=== PATIENT | female | born 1960 | race Caucasian/White ===

== ENCOUNTER 2024-04-20 00:29 | Emergency (ER) | payer BC, SELFPAY ==
[2024-04-20] VITALS (7 sets, daily range): BP systolic 117–135; BP diastolic 57–72; PULSE 67–85; RESP 16; TEMP 36; O2SAT 93–96; BMI 32.0
--- NOTE | 2024-04-20 00:43 | ED_ITS ---
HPI - General Adult General Chief complaint: Abdominal Pain Stated complaint: upper abdominal pain Time Seen by Provider: 04/20/24 00:40 History of Present Illness HPI narrative: pain in stomach , upper center. tried antacid, not helping it . Started after [employer] hamburger. Feels like a build up of pressure. Pain rated 8/10. Started around 1800. Last oral intake was 1730, full meal. 64-year-old woman presenting to the emergency department with complain of epigastric area pressure in particular. Rather intense pain. Arrives here around midnight about 6 hours into pain following a [employer] cheeseburger and fries as her meal. Has not had any fever. No diarrhea. Not really constipated. Does have heartburn at times but not like this. She did try Tums I believe without relief. Pain seemed to go through to her back as well. No symptoms down her legs. Not really short of breath. Related Data Home Medications ?Medication ?Instructions ?Recorded ?Confirmed lisinopril 10 mg tablet 10 mg PO DAILY 04/20/24 04/24/24 Allergies Allergy/AdvReac Type Severity Reaction Status Date / Time amlodipine Allergy Intermediate Uncoded 04/24/24 12:53 Review of Systems Status of ROS: Reports: 6 or more systems reviewed and unremarkable except as noted in History and below [facility] Social History service: No Exam Narrative: Exam Narrative: Very pleasant. Appears uncomfortable. Skin is warm and dry. She is well- perfused peripherally. Abdomen is soft and with some epigastric area discomfort. Negative Barnhart;s. No peritoneal signs. No flank tenderness. Lungs are clear. Heart with regular rate and rhythm without murmur rub or gallop. Const: Vital Signs, click to edit/add: Vital Signs - 24 hr 04/20/24 00:35 04/20/24 02:26 04/20/24 02:27 Temperature 96.8 F L Pulse Rate 78 77 Pulse Rate [Left P ulse Oximeter] 67 Respiratory Rate 16 Blood Pressure 117/57 L Blood Pressure [Ri ght Upper Arm] 135/58 L Pulse Oximetry 96 95 95 Oxygen Delivery Me thod Room Air 04/20/24 03:12 04/20/24 04:00 04/20/24 04:05 Temperature Pulse Rate 79 76 85 Pulse Rate [Left P ulse Oximeter] Respiratory Rate Blood Pressure Blood Pressure [Ri ght Upper Arm] Pulse Oximetry 95 93 93 Oxygen Delivery Me thod 04/20/24 04:06 Temperature Pulse Rate 84 Pulse Rate [Left P ulse Oximeter] Respiratory Rate Blood Pressure 125/72 Blood Pressure [Ri ght Upper Arm] Pulse Oximetry 95 Oxygen Delivery Me thod Documenting provider has reviewed patient's vital signs: yes Course Vital Signs Vital signs: Initial Vital Signs Temperature 96.8 F L 04/20/24 00:35 Temperature Source Temporal Artery Scan 04/20/24 00:35 Pulse Rate 67 04/20/24 00:35 Pulse Rhythm Regular 04/20/24 00:35 Respiratory Rate 16 04/20/24 00:35 Blood Pressure 135/58 L 04/20/24 00:35 Blood Pressure Mean 83 04/20/24 00:35 Blood Pressure Position Sitting 04/20/24 00:35 Pulse Oximetry 96 04/20/24 00:35 Oxygen Delivery Method Room Air 04/20/24 00:35 Vital Signs Temperature 96.8 F L 04/20/24 00:35 Pulse Rate 67 04/20/24 00:35 Respiratory Rate 16 04/20/24 00:35 Blood Pressure 135/58 L 04/20/24 00:35 Pulse Oximetry 96 04/20/24 00:35 Oxygen Delivery Method Room Air 04/20/24 00:35 Temperature 96.8 F L 04/20/24 00:35 Pulse Rate 84 04/20/24 04:06 Respiratory Rate 16 04/20/24 00:35 Blood Pressure 125/72 04/20/24 04:06 Pulse Oximetry 95 04/20/24 04:06 Oxygen Delivery Method Room Air 04/20/24 00:35 Medications Administered Medications: Discontinued Medications Generic Name Dose Route Start Last Admin Trade Name Freq PRN Reason Stop Dose Admin Sodium Chloride 500 mls @ 500 mls/hr 04/20/24 01:13 04/20/24 02:11 0.9 % Sodium Chloride 500 Ml IV 04/20/24 02:12 Infused .Q1H ONE Infusion Ketorolac Tromethamine 30 mg 04/20/24 00:49 04/20/24 01:27 Ketorolac 30 Mg/Ml Inj IVP 30 mg ONCE PRN Administration Pain Lidocaine/Aluminum/Magnesium/Simeth 30 ml 04/20/24 00:49 04/20/24 01:03 Gi Cocktail (Visc Lido/Antacid) 30 Ml PO 04/20/24 00:50 30 ml ONCE ONE Administration Morphine Sulfate 4 mg 04/20/24 00:49 04/20/24 01:27 Morphine 4 Mg/Ml Inj IVP 4 mg ONCE PRN Administration Pain Ondansetron HCl 4 mg 04/20/24 01:12 04/20/24 01:18 Ondansetron 2 Mg/Ml Inj IVP 04/20/24 01:13 4 mg ONCE ONE Administration Medical Decision Making MDM Narrative Medical decision making narrative: I would have concerns over potential biliary colic or cholecystitis. Might have some esophageal spasm the setting of GERD. Possible cardiac as well. Dissection I suppose is possible as well but I think less likely. Does not appear to have significant risk factors for this. No respiratory symptoms to suggest pneumonia though I suppose pneumomediastinum is in differential. She would like to try GI cocktail and proceed from there though I would collect lab analysis in the meantime. I would anticipate ultrasound as initial imaging. GI cocktail not helpful. Improved following dosing of ketorolac and Zofran and morphine. Normal saline also given. Labs normal white count. Elevated D-dimer though I think this is more related to inflammation with transaminases that are notably elevated than dissection. Direct bilirubin slightly elevated. Wonder if may have rolled a stone given findings in ultrasound as discussed with beef killer. I suppose also potential of just having had some biliary colic with mobile stones. TECHNIQUE: Ultrasound abdomen limited. Sonographic images of the right upper quadrant were obtained using mcguire-scale and color Doppler images. COMPARISON: CT abdomen and pelvis 11/09/2017. FINDINGS: Evaluation limited by body habitus. Liver: The left hepatic lobe is not well visualized. Otherwise normal in size and echotexture. No intrahepatic biliary ductal dilatation. Gallbladder: Multiple shadowing stones. Normal wall thickness. No pericholecystic fluid. Negative sonographic Barnhart`s sign. Common bile duct: 6.8 mm. Pancreas: Not visualized, obscured by bowel gas. Right kidney: Normal in size. Normal echotexture and cortex. No suspicious masses or hydronephrosis. Vasculature: Proximal abdominal aorta is unremarkable. IVC not visualized, obscured by bowel gas. IMPRESSION: 1. Cholelithiasis without evidence of cholecystitis. 2. Limited evaluation due to body habitus, with multiple structures not visualized as above. I think as she is improved can follow-up outpatient with General surgery. See patient discharge plan for further discussion Lab Data Lab results reviewed: Yes I reviewed the patient's lab results Labs: Lab Results 04/20/24 04/20/24 04/20/24 Range/Units 00:49 01:00 01:58 WBC 9.68 (4.50-11.00) K/uL RBC 5.13 (4.00-5.20) m/uL Hgb 14.3 (12.0-16.0) gm/dL Hct 44.4 (33.0-51.0) % MCV 87 (80-100) fL MCH 28 (26-34) pg MCHC 32 (32-36) gm/dL RDW Coeff of Sg 12.2 (11.5-15.5) % Plt Count 279 (140-440) K/uL Neut % (Auto) 85.7 H (42.0-72.0) % Lymph % (Auto) 9.2 L (20-44) % Towner % (Auto) 4.0 (0.0-11.0) % Eos % (Auto) 0.6 (0.0-7.0) % Baso % (Auto) 0.4 (0.0-3.0) % Neut # (Auto) 8.30 H (1.7-7.0) K/uL Lymph # (Auto) 0.90 (0.90-2.90) K/uL Towner # (Auto) 0.40 (0.00-0.90) K/UL Eos # (Auto) 0.06 (0.00-0.50) K/uL Baso # (Auto) 0.04 (0.00-0.30) K/uL Abs Immat Gran (auto) 0.01 (0.00-0.30) K/uL Imm/Tot Granulo (auto) 0.1 % D-Dimer Quant (PE/DVT) 1.72 H (0.00-0.50) ug/ml Sodium 137 (135-149) mmol/L Potassium 3.8 (3.6-5.1) mmol/L Chloride 103 (96-114) mmol/L Carbon Dioxide 27 (20-32) mmol/L Anion Gap 7 (7-15) mEq/L BUN 25 (7-30) mg/dL Creatinine 1.0 (0.5-1.5) mg/dL Estimated Creat Clear 45.54 Estimated GFR 63 ml/min Glucose 191 H (60-115) mg/dL Calcium 9.9 (8.4-10.6) mg/dL Total Bilirubin 1.4 (0.1-1.5) mg/dL Direct Bilirubin 0.9 H (0.0-0.5) mg/dL AST 269 H (12-35) U/L ALT 165 H (4-35) U/L Alkaline Phosphatase 98 (40-150) U/L Troponin I < 0.01 L (0.01-0.04) ng/mL C-Reactive Protein 1.0 (0.5-1.0) mg/dL Total Protein 8.1 (6.0-8.3) g/dL Albumin 4.6 (3.3-5.0) g/dL Lipase 71 (23-300) U/L Urine Color (Yellow) Urine Appearance (Clear) Urine pH (5.0-8.5) Ur Specific [place] (1.000-1.030) Urine Protein (Negative) Urine Glucose (UA) (Negative) Urine Ketones (Negative) Urine Blood (Negative) Urine Nitrite (Negative) Urine Bilirubin (Negative) Urine Urobilinogen (0.2-1.0) Ur Leukocyte Esterase (Negative) Urine RBC (0-2) Urine WBC (0-5) Ur Squamous Epith Cells (None-Few) Urine Bacteria (None) Lab Acknowledgement Test Added POC Troponin I 0.01 (0.01-0.04) ng/ml 04/20/24 Range/Units 02:15 WBC (4.50-11.00) K/uL RBC (4.00-5.20) m/uL Hgb (12.0-16.0) gm/dL Hct (33.0-51.0) % MCV (80-100) fL MCH (26-34) pg MCHC (32-36) gm/dL RDW Coeff of Sg (11.5-15.5) % Plt Count (140-440) K/uL Neut % (Auto) (42.0-72.0) % Lymph % (Auto) (20-44) % Towner % (Auto) (0.0-11.0) % Eos % (Auto) (0.0-7.0) % Baso % (Auto) (0.0-3.0) % Neut # (Auto) (1.7-7.0) K/uL Lymph # (Auto) (0.90-2.90) K/uL Towner # (Auto) (0.00-0.90) K/UL Eos # (Auto) (0.00-0.50) K/uL Baso # (Auto) (0.00-0.30) K/uL Abs Immat Gran (auto) (0.00-0.30) K/uL Imm/Tot Granulo (auto) % D-Dimer Quant (PE/DVT) (0.00-0.50) ug/ml Sodium (135-149) mmol/L Potassium (3.6-5.1) mmol/L Chloride (96-114) mmol/L Carbon Dioxide (20-32) mmol/L Anion Gap (7-15) mEq/L BUN (7-30) mg/dL Creatinine (0.5-1.5) mg/dL Estimated Creat Clear Estimated GFR ml/min Glucose (60-115) mg/dL Calcium (8.4-10.6) mg/dL Total Bilirubin (0.1-1.5) mg/dL Direct Bilirubin (0.0-0.5) mg/dL AST (12-35) U/L ALT (4-35) U/L Alkaline Phosphatase (40-150) U/L Troponin I (0.01-0.04) ng/mL C-Reactive Protein (0.5-1.0) mg/dL Total Protein (6.0-8.3) g/dL Albumin (3.3-5.0) g/dL Lipase (23-300) U/L Urine Color Yellow (Yellow) Urine Appearance Clear (Clear) Urine pH 6.0 (5.0-8.5) Ur Specific [place] >= 1.030 (1.000-1.030) Urine Protein Trace A (Negative) Urine Glucose (UA) Negative (Negative) Urine Ketones Negative (Negative) Urine Blood Trace-intact A (Negative) Urine Nitrite Negative (Negative) Urine Bilirubin Negative (Negative) Urine Urobilinogen 0.2 (0.2-1.0) Ur Leukocyte Esterase Negative (Negative) Urine RBC 0-2 (0-2) Urine WBC 0-2 (0-5) Ur Squamous Epith Cells None (None-Few) Urine Bacteria None (None) Lab Acknowledgement POC Troponin I (0.01-0.04) ng/ml Discharge Plan Discharge Clinical Impression: Cholelithiasis, Acute epigastric pain Additional Instructions: Stay well hydrated. Avoid fatty foods/meals for now. I would like you to follow-up with general surgery in clinic. Please call on Sunday to schedule. Phone number If pain flares again, I am prescribing some [place] from [facility]. This is an opiate. If pain does not settle down within 2 hours or seems otherwise different or concerning, please return to the emergency department. Prescriptions: No Action lisinopril 10 mg tablet 10 mg PO DAILY Follow Up/Referrals: Virginia Steve PA-C [Primary Care Provider] - Stand Alone Forms: [email or web address] Info Instructions
[2024-04-20] MEDS: GI COCKTAIL (VISC LIDO/ANTACID) 30 ML PO (01:03)
[2024-04-20 01:06] LABS: Hematocrit 44.4 % (33.0-51.0); Hemoglobin* 14.3 gm/dL (12.0-16.0); Mean Corpuscular HGB Conc 32 gm/dL (32-36); Mean Corpuscular Hemoglobin 28 pg (26-34); Mean Corpuscular Volume 87 fL (80-100); Neutrophils Percent Auto 85.7 % (42.0-72.0); Platelet Count* 279 K/uL (140-440); RDW Coefficient of Variation % 12.2 % (11.5-15.5); Red Blood Count 5.13 m/uL (4.00-5.20); White Blood Count* 9.68 K/uL (4.50-11.00)
[2024-04-20 01:07] LABS: Basophils Absolute Auto 0.04 K/uL (0.00-0.30); Basophils Percent Auto 0.4 % (0.0-3.0); Eosinophils Absolute Auto 0.06 K/uL (0.00-0.50); Eosinophils Percent Auto 0.6 % (0.0-7.0); Immature Granulocytes Abs Auto 0.01 K/uL (0.00-0.30); Immature Granulocytes Pct Auto 0.1 %; Lymphocytes Percent Auto 9.2 % (20-44)
[2024-04-20] MEDS: ONDANSETRON 2 MG/ML inj 4 MG IVP (01:18)
[2024-04-20 01:19] LABS: Troponin, Point-of-Care* 0.01 ng/ml (0.01-0.04)
[2024-04-20 01:23] LABS: Slide Review Reflex No
[2024-04-20] MEDS: KETOROLAC 30 MG/ML inj IVP (01:27)
[2024-04-20] MEDS: 0.9 % SODIUM CHLORIDE 500 ML 500 ML IV (01:27)
[2024-04-20] MEDS: MORPHINE 4 MG/ML INJ IVP (01:27)
[2024-04-20 01:31] LABS: Albumin* 4.6 g/dL (3.3-5.0); Chloride* 103 mmol/L (96-114); Sodium* 137 mmol/L (135-149)
[2024-04-20 01:32] LABS: Potassium* 3.8 mmol/L (3.6-5.1)
[2024-04-20 01:33] LABS: Est. Creatinine Clearance* 45.54; Estimated Glomerular Filt Rate 63 ml/min
[2024-04-20 01:34] LABS: Alanine Aminotransferase* 165 U/L (4-35); Alkaline Phosphatase* 98 U/L (40-150); Anion Gap 7 mEq/L (7-15); Aspartate Amino Transferase* 269 U/L (12-35); Bilirubin Direct* 0.9 mg/dL (0.0-0.5); Bilirubin Total* 1.4 mg/dL (0.1-1.5); Blood Urea Nitrogen* 25 mg/dL (7-30); Carbon Dioxide* 27 mmol/L (20-32); Total Protein* 8.1 g/dL (6.0-8.3)
[2024-04-20 01:35] LABS: Calcium* 9.9 mg/dL (8.4-10.6); D Dimer Quantitative* 1.72 ug/ml (0.00-0.50); Glucose* 191 mg/dL (60-115)
--- NOTE | 2024-04-20 01:41 | CRLHL7_ITS ---
For Patients: As a result of the Century Cures Act, medical imaging exams and procedure reports are released immediately into your electronic medical record. You may view this report before your referring provider. If you have questions, please contact your health care provider. INDICATION: Epigastric pain. TECHNIQUE: Ultrasound abdomen limited. Sonographic images of the right upper quadrant were obtained using mcguire-scale and color Doppler images. COMPARISON: CT abdomen and pelvis 11/09/2017. FINDINGS: Evaluation limited by body habitus. Liver: The left hepatic lobe is not well visualized. Otherwise normal in size and echotexture. No intrahepatic biliary ductal dilatation. Gallbladder: Multiple shadowing stones. Normal wall thickness. No pericholecystic fluid. Negative sonographic Barnhart`s sign. Common bile duct: 6.8 mm. Pancreas: Not visualized, obscured by bowel gas. Right kidney: Normal in size. Normal echotexture and cortex. No suspicious masses or hydronephrosis. Vasculature: Proximal abdominal aorta is unremarkable. IVC not visualized, obscured by bowel gas. IMPRESSION: 1. Cholelithiasis without evidence of cholecystitis. 2. Limited evaluation due to body habitus, with multiple structures not visualized as above. Dictated by Jose Venegas MD @ 04/20/2024 3:42:58 AM (Electronically Signed)
--- OUTSIDE RECORDS SUMMARY | 2024-04-20 01:43 | XMS_ITS | Clinical Summary ---
Author Organization [facility] s & [facility]ates Address [place], [place] [address] Care Team Providers Care Educational Specialist Name Role Phone Virginia Steve Primary Care Provider Allergies Active Allergy Reactions Criticality Noted Date Comments Amlodipine Erythema 09/27/2015 Amoxicillin-Pot Clavulanate Other - Describe In Comment Field 08/01/2019 Tight sensation in chest and itchy flushing upper chest. Medications Medication Sig Dispensed Refills Start Date End Date Status Cholecalciferol, Vitamin D3, (VITAMIN D-3) 2,000 unit tablet Take 1 tablet by mouth once daily. 0 04/27/2015 Active ondansetron (ZOFRAN ODT) 4 mg disintegrating tabletIndications:Nause a Place 1 Tablet (4 mg) on the tongue every 8 hours if needed for Nausea/Vomiting . 10 Tablet 12/01/2021 Active lisinopriL (PRINIVIL; ZESTRIL) 10 mg tabletIndications:Hyper tension, unspecified type Take 1 Tablet (10 mg) by mouth once daily. 90 Tablet 3 12/31/2023 Active Active Problems Problem Noted Date Diagnosed Date Vitamin D deficiency 04/10/2014 HTN (hypertension) 09/18/2013 Resolved Problems Problem Noted Date Diagnosed Date Resolved Date Menstrual migraine 01/26/2009 Encounters Date Type Department Care Team Description 02/29/2024 2:15 PM CDT Ancillary Procedure [facility] [address] [place] [address] 02/29/2024 1:50 PM CDT Office Visit [facility] [address] [facility] [address] Michelle Vigil DO Knee Pain/problem (right side knee/hurt in September initially- healed /); Musculoskeletal Problem (right side hip pain) 02/29/2024 Travel 02/26/2024 Nurse Triage [facility] [address] [place] [address] Virginia Steve PA Knee Pain/problem from Last 3 Months Immunizations Name Administration Dates Next Due Influenza, IIV4 04/28/2019,04/24/2017 Td (Age >=7 Years) 03/16/2021,04/21/1997 Tdap 01/26/2009 Family History Medical History Relation Name Comments Diabetes Brother 1 Type II Psychiatric illness Brother 2 depressi on Cancer Father skin, basal Hyperlipidemia Father Hypertension Father Psychiatric illness Father depressi on Cancer-breast Maternal Aunt Cancer Mother skin, basal Hypertension Mother Anesthesia Problem Paternal Grandfather Hypertension Sister Psychiatric illness Sister depressi on Cancer-ovarian No Family History Relation Name Status Comments Brother 1 Brother 2 Father Maternal Aunt Mother Paternal Grandfather Sister Social History Tobacco Use Types Packs/Day Years Used Date Smoking Tobacco: Never Smokeless Tobacco: Never Tobacco Cessation:Counseling Given: Yes Alcohol Use Standard Drinks/Week Comments Yes 0 (1 standard drink = 0.6 oz pure alcohol) once weekly, 2 drinks at a sitting Humiliation, Afraid, Rape, and Kick questionnair e Answer Date Recorded Fear of Current or Ex-Partner No Emotionally Abused No 04/28/2019 Physically Abused No 04/28/2019 Sexually Abused No 04/28/2019 PHQ-2 Answer Date Recorded PHQ-2 TOTAL SCORE 0 03/16/2021 Social Connections Answer Date Recorded Frequency of Communication with Friends and Fami ly 0 12/31/2023 Financial Resource Strain Answer Date R ecorded Difficulty of Paying Living Expenses 3 12/31/2023 Difficulty of Paying Living Expenses Not on file 12/31/2023 Food Insecurity Answer Date Recorded Worried About Running Out of Food in the Last Ye ar 1 12/31/2023 Transportation Needs Answer Date Record ed Lack of Transportation (Medical) 1 12/31/2023 Housing Stability Answer Date Recorded Unable to Pay for Housing in the Last Year 1 12/31/2023 Sex and Gender Information Value Date Recorded Sex Assigned at Female 11/17/2020 9:27 PM CDT Gender Identity Female 03/12/2021 8:28 PM CDT Sexual Orientation Straight 03/12/2021 8: 30 PM CDT Obstetrics History Para Term AB IAB SAB Ectopic Multiple Livin g Live Births 4 4 4 Date Outcome GA Total Labor Labor/2nd/3rd Weight Sex Type Anes PTL Jazmyn A1 A5 Name Clin Living Living Living Living Last Filed Vital Signs Vital Sign Reading Time Taken Comments Blood Pressure 119/77 02/29/2024 1:45 PM CDT Pulse 63 02/29/2024 1:45 PM CDT Temperature 36.5 ??C (97.7 ??F) 08/01/2019 3:14 PM CS T Respiratory Rate 16 07/14/2015 1:52 PM NEEDLE CONTROL CHENILLER Oxygen Saturation 99% 02/29/2024 1:45 PM CDT Inhaled Oxygen Concentration - - Weight 83.2 kg (183 lb 6.4 oz) 02/29/2024 1:45 P M CDT Height 158 cm (5' 2.21) 12/31/2023 9:31 AM CDT Body Mass Index 33.32 12/31/2023 9:31 AM CDT Plan of Treatment Health Maintenance Due Date Last Done Comments HIV for age 15-65 1976 Zoster (shingles) series for age 50+ (1 of 2) 2011 Depression screening for age 12+ 03/16/2022 03/16/2021, 04/28/2019, 04/30/2018, Additional history exists COVID-19 vaccine series ( season) 2024 Influenza for age 50-64 03/02/2024 04/28/2019, 04/24 Fecal testing non-DNA (FIT,FOBT,iFOBT) for age 45-75 03/21/2024 03/21/2023, 04/04/2021, 08/01/2019, Additional history exists BMI (ht and wt on same day) for age 18+ 12/30/2024 12/31/2023, 08/04/2022, 03/16/2021, Additional history exists Mammogram for age 45-75 12/30/2024 12/31/19 24, 03/16/2021, 04/30/2018, Additional history exists Pap test for age 21-65 03/16/2026 , 03/16/2021, 04/19/2016, Additional history exists Lipids for age 45-75 12/30/2028 12/31/2023, 03/16/2021, 04/28/2019, Additional history exists Tetanus booster 03/16/2031 03/16/2021, 12/31, 04/21/1997 Tdap Completed 01/26/2009 Hepatitis C screening for age 18-79 Completed 04/08/2014 Pneumococcal series for age 6-64 Aged Out No longer eligible based on patient's age to complete this topic Goals Goal Patient Goal Type Associated Problems Recent Progress Patient-Stated? Author BLOOD PRESSURE-MA INTAINS BP LESS THAN 130/80 Blood Pressure No Lora Ornelas NP Procedures Procedure Name Priority Date/Time Associated Diagnosis Comments XR KNEE 3 VIEWS RIGHT Routine 02/29/2024 2:22 PM CDT Chronic pain of right knee LIPID PANEL W REFLEX MEASURED LDL Routine 12/31/2023 10:27 AM CDT Screening cholesterol level XR MAMMO TARUN BILAT SCREEN Routine 12/31/2023 8:48 AM CDT Visit for screening mammogram OCCULT BLOOD IFOBT STOOL Routine 03/21/2023 12:38 PM CDT Screening for colon cancer HPV HIGH RISK Routine 03/16/2021 11:17 AM CDT Screening for cervical cancer ANTI HCV Routine 04/08/2014 1:58 PM CDT Need for hepatitis C screening test from Last 3 Months or Most Recently Relevant to Health Maintenance Results * XR KNEE 3 VIEWS RIGHT (02/29/2024 2:22 PM CDT) Anatomical Region Laterality Modality KNEES, KNEE R Computed Radiogr aphy 03/04/2024 5:56 AM CDT Narrative 03/04/2024 5:56 AM CDT For Patients: ??As a result of the Cures Act, medical imaging exams and procedure reports are released immediately into your electronic medical record. ??You may view this report before your referring provider. ??If you have questions, please contact your health care provider. Indication: Knee pain Technique: Right knee 3 views Comparison: None Findings: Mild patellofemoral spurring right knee. No joint effusion. Standing alignment normal Impression: Patellofemoral compartment degenerative joint disease. Dictated by Navin Collins MD @ 03/04/2024 5:56:39 AM (Electronically Signed) Procedure Note Navin Collins MD - 03/04/2024 For Patients: As a result of the Cures Act, medical imagingexams and procedure reports are released immediately into your electronicmedical record. You may view this report before your referring provider.If you have questions, please contact your health care provider. Indication: Knee pain Technique: Right knee 3 views Comparison: None Findings: Mild patellofemoral spurring right knee. No joint effusion. Standingalignment normal Impression: Patellofemoral compartment degenerative joint disease. Dictated by Navin Collins MD @ 03/04/2024 5:56:39 AM (Electronically Signed) Michelle Oh Detert DO GENERAL IMAGING * (ABNORMAL) LIPID PANEL W REFLEX MEASURED LDL (12/31/2023 10:27 AM CDT) CHOLESTEROL,TOTAL 214(H) 100 - 199 mg/dL 12/31/2023 7:07 PM CDT [facility] Comment: Cholesterol, Total Reference Ranges Desirable <200 mg/dL Borderline 200-239 mg/dL High >=240 mg/dL TRIGLYCERIDES 127 <150 mg/dL 12/31/2023 7:07 PM CDT [facility] HDL CHOLESTEROL 51 >40 mg/dL 7:07 PM CDT [facility] NON-HDL CHOLESTEROL 163(H) <145 mg/dl 12/31/2023 7:07 PM CDT [facility] CHOL/HDL RATIO 4.20 <4.50 12/31/2023 7:07 PM CDT [facility] LDL CHOLESTEROL 138(H) <=130 mg/dL 12/31/2023 7:07 PM CDT [facility] VLDL CHOLESTEROL 25 <=30 mg/dL 12/31/2023 7:07 PM CDT [facility] PROVIDER ORDERED STATUS RANDOM 12/31/2023 7:07 PM CDT [facility] Blood BLOOD SPECIMEN / Unknown Venipuncture / Unknown 12/31/2023 10:27 AM CDT 12/31/2023 10:27 AM CDT [place] RODRIGUES CHEMISTRY [facility] [address] [place] [id number], * XR MAMMO TARUN BILAT SCREEN (12/31/2023 8:48 AM CDT) Anatomical Region Laterality Modality BREASTS, Breast Left, Breast Right Bilateral Mammography Impressions 01/01/2024 3:47 PM CDT ??There is no radiographic evidence for malignancy. ??Recommend annual mammograms. MAMMOGRAM ASSESSMENT: ??ACR 1 Negative PATIENTS: You will also receive a letter with your examination results in an easy to read format. ??If you have questions about your results, please contact your referring provider. Narrative 01/01/2024 3:47 PM CDT For Patients: As a result of the 21st Century Cures Act, medical imaging exams and procedure reports are released immediately into your electronic medical record. You may view this report before your referring provider. If you have questions, please contact your health care provider. XR MAMMO TARUN BILAT SCREEN [[id number]] CLINICAL HISTORY: ??This is an asymptomatic 63 y.o. patient. INDICATION FOR EXAM: Mammogram Screening. TECHNIQUE: CC & MLO views were obtained. ??This study was evaluated with the assistance of Computer-Aided Detection. Breast Tomosynthesis was used in interpretation. COMPARISON FILM: Yes 03/16/21 [facility] 04/30/18 [facility] FINDINGS: ??There are scattered areas of fibroglandular density. There are no dominant masses, suspicious micro calcifications or areas of architectural distortion. [place] RODRIGUES MAMMO * OCCULT BLOOD IFOBT STOOL (03/21/2023 12:38 PM CDT) STOOL BLOOD ,IFOBT Negative Negative 03/23/2023 1:47 PM CDT [facility] Stool STOOL SPECIMEN / Unknown Non-Blood / Unknown 03/21/2023 12:38 PM CDT 03/23/2023 12:38 PM CDT [place] RODRIGUES [facility] Performing Organization Address [facility]/ZIP Co de Phone Number [facility] [address] [place] [address], * HPV HIGH RISK (03/16/2021 11:17 AM CDT) TYPE 16 Negative Negative 03/18/2021 2:08 PM CDT [facility] TYPE 18 Negative Negative 03/18/2021 2:08 PM CDT [facility] OTHER HIGH RISK TYPES Negative Negative 03/18/2021 2:08 PM CDT [facility] Other (Cervical) Non-Blood / Unknown 03/16/2021 11:17 AM CDT 03/16/2021 6:23 PM CDT Narrative [facility] - 03/18/2021 2:08 PM CDT HPV types 16, 18, 31, 33, 35, 39, 45, 51, 52, 56, 58, 59, 66 and 68 DNA were undetectable or below the pre-set threshold. Methodology: Odilon Michelle 4800 HPV Test [place] RODRIGUES MICROBIOLOGY [facility] [address] [place] [address], [place] * ANTI HCV (04/08/2014 1:58 PM CDT) HEPATITIS C ANTIBODY Non-Reacti ve Non-Reacti ve 04/08/2014 8:20 PM CDT [facility] Blood specimen (specimen) BLOOD SPECIMEN / Unknown Butterfly / Unknown 04/08/2014 1:58 PM CDT 04/08/2014 1:58 PM CDT Narrative [facility] - 04/08/2014 8:20 PM CDT Antibodies to HCV not detected; does not exclude the possibility of exposure to HCV. Lora Osborne CONTAINER WASHER SEND OUTS [facility] [address] [place] [address], from Last 3 Months or Most Recently Relevant to Health Maintenance Care Teams Educational Specialist Relationship Specialty Start Date End Date Virginia Steve PA [address] [place] [address] PCP - General Physician Fireworks Inspector 03/16/21
[2024-04-20 01:58] LABS: Troponin I* < 0.01 ng/mL (0.01-0.04)
[2024-04-20 02:32] LABS: Appearance Urine Clear (Clear); Bilirubin Urine Negative (Negative); Blood Urine Trace-intact (Negative); Color Urine Yellow (Yellow); Glucose Urine Negative (Negative); Ketones Urine Negative (Negative); Leukocyte Esterase Urine Negative (Negative); Nitrite Urine Negative (Negative); Protein Urine Trace (Negative); Specific Gravity Urine >= 1.030 (1.000-1.030); Urobilinogen Urine 0.2 (0.2-1.0)
[2024-04-20 02:48] LABS: RBC Urine 0-2 (0-2); WBC Urine 0-2 (0-5)
[2024-04-20 02:59] LABS: Lipase* 71 U/L (23-300)
== END 2024-04-20 04:53 | disposition home or self-care (01) ==
PROVIDERS: Emergency Provider Family Medicine; PCP Physician Assistant Medical
DX: K80.20 Calculus of gallbladder without cholecystitis without obstruction (principal); R10.13 Epigastric pain
CPT/HCPCS: 36415; 76705; 80048; 80076; 81001; 83690; 84484; 85025; 85379; 86140; 96374; 96375; 99284; A9270; J1885; J2270; J2405; J7030

== ENCOUNTER 2024-05-22 07:47 | Day surgery (SDC) | payer BC, SELFPAY ==
[2024-05-22] VITALS (17 sets, daily range): BP systolic 121–167; BP diastolic 62–84; PULSE 45–72; RESP 14–16; TEMP 36.4–37.2; O2SAT 91–99; BMI 32.2
--- OUTSIDE RECORDS SUMMARY | 2024-05-22 07:50 | XMS_ITS | Clinical Summary ---
Author Organization [facility] s & [facility] Address [place], [place] [address] Care Team Providers Care Flying I Instructor Name Role Phone Virginia Steve Primary Care [...] Diagnosed Date Resolved Date Menstrual migraine 01/26/2009 4 Encounters Date Type Department Care Team Description 05/14/2024 8:50 AM LIVE GAMES DEALER Office Visit [facility] [address] [place] [address] Virginia Steve PA Preoperative Exam (Gallbladder) 05/14/2024 Travel 05/13/2024 Travel 05/09/2024 Travel 04/20/2024 Orders Only [facility] Scanner 1 scan: (1-Ord) [facility] , 04/20/2024 02/29/2024 2:15 PM CDT Ancillary Procedure [facility] [address] [place] [address] 02/29/2024 1:50 PM CDT Office Visit [facility] [address] [place] [address] Michelle Vigil, Knee Pain/problem (right side knee/hurt in September initially- healed /); Musculoskeletal Problem (right side hip pain) 02/29/2024 Travel 02/26/2024 Nurse Triage [facility] [address] [place] [address] Virginia Steve PA Knee Pain/problem from Last [...] 0 03/16/2021 Social Connections Answer Date Recorded Do you often feel lonely or isolated from those around you? 0 12/31/2023 Financial Resource Strain Answer Date R ecorded Difficulty of Paying Living Expenses 3 12/31/2023 Difficulty of Paying Living Expenses Not on file 12/31/2023 Food Insecurity Answer Date Recorded Do you worry your food will run out before you are able to buy more? 1 12/31/2023 Transportation Needs Answer Date Record ed Does lack of transportation keep you from medica l appointments? 1 12/31/2023 Does lack of transportation keep you from work, meetings or getting things that you need? 1 12/31/2023 Housing Stability Answer Date Recorded What is your housing situation today? 1 12/31/2023 Sex and Gender Information Value [...] Sign Reading Time Taken Comments Blood Pressure 103/62 05/14/2024 8:43 AM LIVE GAMES DEALER Pulse 56 05/14/2024 8:43 AM LIVE GAMES DEALER Temperature 36.5 C (97.7 F) 08/01/2019 3:14 PM LIVE GAMES DEALER Respiratory Rate 16 07/14/2015 1:52 PM LIVE GAMES DEALER Oxygen Saturation 98% 05/14/2024 8:43 AM LIVE GAMES DEALER Inhaled Oxygen Concentration - - Weight 80.3 kg (177 lb) 05/14/2024 8:43 AM LIVE GAMES DEALER Height 158 cm (5' 2.21) 05/14/2024 8:43 AM LIVE GAMES DEALER Body Mass Index 32.16 05/14/2024 8:43 AM LIVE GAMES DEALER Plan of Treatment Health Maintenance Due Date Last Done Comments HIV for age 15-65 1976 Zoster (shingles) series for age 50+ (1 of 2) 2011 Depression screening for age 12+ 03/16/2022 03/16/2021, 04/28/2019, 04/30/2018, Additional history exists COVID-19 vaccine series (2023- season) 2024 Influenza for age 50-64 03/02/2024 04/28/2019, 04/24 Fecal testing non-DNA (FIT,FOBT,iFOBT) for age 45-75 03/21/2024 03/21/2023, 04/04/2021, 08/01/2019, Additional history exists Mammogram for age 45-75 12/30/2024 12/31/19, 03/16/2021, 04/30/2018, Additional history exists BMI (ht and wt on same day) for age 18+ 05/14/2025 05/14/2024, 12/31/2023, 08/04/2022, Additional history exists Pap test for age [...] Procedure Name Priority Date/Time Associated Diagnosis Comments SCAN-ULTRASOUND REPORT 04/20/2024 12:00 AM CDT XR KNEE 3 VIEWS RIGHT Routine 02/29/2024 [...] Recently Relevant to Health Maintenance Results * SCAN-ULTRASOUND REPORT (04/20/2024 12:00 AM CDT) Anatomical Region Laterality Modality Other Scanner OTHER * XR KNEE 3 VIEWS RIGHT (02/29/2024 2:22 PM CDT) Anatomical Region Laterality Modality KNEES, KNEE R Computed Radiogr aphy 03/04/2024 5:56 AM CDT Narrative 03/04/2024 5:56 AM CDT For Patients: As a result of [...] For Patients: As a result of the s Act, medical imagingexams and procedure reports are [...] - 199 mg/dL 12/31/2023 7:07 PM CDT [facility] Comment: Cholesterol, Total Reference Ranges Desirable <200 mg/dL Borderline 200-239 mg/dL High >=240 mg/dL TRIGLYCERIDES 127 <150 mg/dL 12/31/2023 7:07 PM CDT [facility] HDL CHOLESTEROL 51 >40 mg/dL 7:07 PM CDT [facility] NON-HDL CHOLESTEROL 163(H) <145 mg/dl 12/31/2023 7:07 PM CDT [facility] CHOL/HDL RATIO 4.20 <4.50 12/31/2023 7:07 PM CDT [facility] LDL CHOLESTEROL 138(H) <=130 mg/dL 12/31/2023 7:07 PM CDT [facility] VLDL CHOLESTEROL 25 <=30 mg/dL 12/31/2023 7:07 PM CDT [facility] PROVIDER ORDERED STATUS RANDOM 12/31/2023 7:07 PM CDT [facility] Blood BLOOD SPECIMEN / Unknown Venipuncture / Unknown 12/31/2023 10:27 AM CDT 12/31/2023 10:27 AM CDT [place] RODRIGUES CHEMISTRY [facility] [address] [place] [address], * XR MAMMO TARUN BILAT SCREEN (12/31/2023 8:48 AM CDT) Anatomical Region Laterality Modality BREASTS, Breast Left, Breast Right Bilateral Mammography Impressions 01/01/2024 3:47 PM CDT There is no radiographic evidence for malignancy. Recommend annual mammograms. MAMMOGRAM ASSESSMENT: ACR 1 Negative PATIENTS: You will also receive a letter with your examination results in an easy to read format. If you have questions about your results, please contact your referring provider. Narrative 01/01/2024 3:47 PM CDT For Patients: As a result of the Cures Act, medical imaging exams and procedure reports are released immediately into your electronic medical record. You may view this report before your referring provider. If you have questions, please contact your health care provider. XR MAMMO TARUN BILAT SCREEN [[id number]] CLINICAL HISTORY: This is an asymptomatic 63 y.o. patient. INDICATION FOR EXAM: Mammogram Screening. TECHNIQUE: CC & MLO views were obtained. This study was evaluated with the assistance of Computer-Aided Detection. Breast Tomosynthesis was used in interpretation. COMPARISON FILM: Yes 03/16/21 [facility] 04/30/18 [facility] FINDINGS: There are scattered areas of fibroglandular density. There are no dominant masses, suspicious micro calcifications or areas of architectural distortion. [place] RODRIGUES MAMMO * OCCULT BLOOD IFOBT STOOL (03/21/2023 12:38 PM CDT) STOOL BLOOD ,IFOBT Negative Negative 03/23/2023 1:47 PM CDT [facility] Stool STOOL SPECIMEN / Unknown Non-Blood / Unknown 03/21/2023 12:38 PM CDT 03/23/2023 12:38 PM CDT [place] RODRIGUES LAB[facility]AT[facility] [address] [place] [address], * HPV HIGH RISK (03/16/2021 11:17 AM CDT) TYPE 16 Negative Negative 03/18/2021 2:08 PM CDT [facility] TYPE 18 Negative Negative 03/18/2021 2:08 PM CDT [facility] OTHER HIGH RISK TYPES Negative Negative 03/18/2021 2:08 PM CDT [facility] Other (Cervical) Non-Blood / Unknown 03/16/2021 11:17 AM CDT 03/16/2021 6:23 PM CDT Narrative [facility] - 03/18/2021 2:08 PM CDT HPV types 16, 18, 31, 33, 35, 39, 45, 51, 52, 56, 58, 59, 66 and 68 DNA were undetectable or below the pre-set threshold. Methodology: Odilon Michelle 4800 HPV Test [place] RODRIGUES MICROBIOLOGY [facility] [address] [place] [address], [place] * ANTI HCV (04/08/2014 1:58 PM CDT) HEPATITIS C ANTIBODY Non-Reacti ve Non-Reacti ve 04/08/2014 8:20 PM CDT [facility] Blood specimen (specimen) BLOOD SPECIMEN / Unknown Butterfly / Unknown 04/08/2014 1:58 PM CDT 04/08/2014 1:58 PM CDT Narrative [facility] - 04/08/2014 8:20 PM CDT Antibodies to HCV not detected; does not exclude the possibility of exposure to HCV. Lora Osborne NP SEND OUTS [facility] [address] [place] [address], from Last 3 Months or Most Recently Relevant to Health Maintenance Care Teams Flying I Instructor Relationship Specialty Start Date End Date Virginia Steve PA [address] [place] [address] PCP - General Physician Quality Assurance Tester 03/16/21
[2024-05-22] MEDS: SODIUM CHLORIDE 0.9 % (FLUSH) 10 ML SYRINGE IVF (08:23)
--- NOTE | 2024-05-22 08:49 | W.PM.H&PU ---
History & Physical Update History & Physical Update H&P Reviewed and patient assessed: No changes noted
[2024-05-22] MEDS: CEFAZOLIN 2 GM INJ IVP (09:43)
[2024-05-22] MEDS: BUPIVACAINE 0.5% 30 ML INJECTION (10:30)
--- NOTE | 2024-05-22 11:03 | P.GSOP_ITS ---
Operative Note Date of procedure: 05/22/24 Pre-op diagnosis: Cholelithiasis, chronic cholecystitis Post-op diagnosis: Same Type of Procedure: Laparoscopic cholecystectomy Indications: Patient is a 64-year-old female who presented to clinic with clinical workup and symptoms consistent with chronic cholecystitis. Risks and benefits of operative intervention were discussed at length with the patient. Risks included but was not limited to: Bleeding, infection, risk of damage to surrounding structures, possible need for additional procedures, possible need to convert to an open operation and postoperative complications such as pneumonia, pulmonary emboli or AR. All questions and concerns were addressed with the patient agreeing to p roceed. Procedure Description: After discussing the risks and benefits of the procedure, the patient signed informed consent.? The operative site was marked and the patient was brought to the operating room and placed on the operating table in supine position.? Care was taken to pad the patient's pressure points.?? The patient was then intubated by anesthesia.?? The operative site was then prepped and draped in the usual sterile fashion.? A time-out was then performed. Entrance to the abdomen was gained via a 5 mm Visiport in the left upper sandee drant. The abdomen was insufflated and briefly surveyed for signs of injury. There was none. 11 mm umbilical port was placed as well as 2 working ports along the right costal margin. Patient was then placed in reverse Trendelenburg position with the right side up. The gallbladder fundus was grasped and retracted cephalad. A small amount of dissection was needed to free omental adhesions from the gallbladder. The infundibulum was grasped. A combination of hook cautery and blunt dissection was used to carefully dissect out the cystic duct and artery until they could clearly be seen entering the gallbladder without any intervening structures. The gallbladder was dissected off the cystic plate to achieve the critical view. Once this was achieved the cystic duct and artery were each clipped with 2 clips proximally and 1 clip distally and transected with the scissors. The gallbladder was then taken off of the liver bed. During this dissection there was a small tear in the gallbladder with spillage of small black stones. All visible stones were suctioned. The gallbladder was removed from the abdomen using an Endo-Catch bag. The gallbladder bed was surveyed for hemostasis, which was excellent. There was a small superficial tear of the liver capsule near the falciform ligament. This likely occurred during retraction of the gallbladder. There was no active bleeding seen. A small amount of bile which had spilled was suctioned from the abdomen. The umbilical port was closed open with a running 0 Vicryl stitch. A took a 2nd look in the abdomen and all other ports were then removed under direct vision. The skin was closed with absorbable subcuticular suture. Instrument sponge and needle counts were correct at the end of the case. The patient was then woken and transferred to the PACU in stable condition. Findings: Cholelithiasis Anesthesia: GETA Surgeon: Ashlie Fletcher MD Estimated blood loss (mL): 5 Specimen: Gallbladder Condition: stable Disposition: PACU
--- NOTE | 2024-05-22 11:08 | W.ANESCHARGE ---
Anesthesia Charges Start Date/Time Anesthesia Start Date: 05/22/24 Anesthesia Start Time: 09:28 Stop Date/Time Anesthesia Stop Date: 05/22/24 Anesthesia Stop Time: 11:10
[2024-05-22] MEDS: 0.9 % SODIUM CHLORIDE 500 ML 500 ML 100 ML IV (11:10)
--- NOTE | 2024-05-22 11:13 | W.ANESCHARGE ---
Anesthesia Charges Start Date/Time Anesthesia Start Date: 05/22/24 Anesthesia Start Time: 09:28 Stop Date/Time Anesthesia Stop Date: 05/22/24 Anesthesia Stop Time: 11:10
[2024-05-22] MEDS: KETOROLAC 15 MG/ML inj IVP (11:16)
[2024-05-22] MEDS: fentaNYL 100 MCG/2 ML inj 50 MCG IVP ×2 (11:21→11:40)
[2024-05-22] MEDS: ACETAMINOPHEN 325 MG TABLET 650 MG PO (12:28)
--- NOTE | 2024-05-22 14:23 | SUR.PHASEII ---
Patient's O2 sats briefly dip to 89% when sleeping in recliner. O2 sats quickly return to 91-92% RA. Patient states readiness for discharge. Patient provided incentive spirometer (IS) and instructions. Patient verbalized understanding of its use and was able to demonstrate. Patient encouraged to sleep in a recliner or propped on pillows. Patient and spouse verbalized understanding and denied any other questions or concerns.
== END 2024-05-22 14:27 | disposition home or self-care (01) ==
PROVIDERS: PCP Physician Assistant Medical; Visit Provider Surgery
PROC: 0FT44ZZ Resection of Gallbladder, Percutaneous Endoscopic Approach (ICD-10-PCS; CPT 47562; principal; 2024-05-22 09:15)
DX: K80.10 Calculus of gallbladder with chronic cholecystitis without obstruction (principal)
CPT/HCPCS: 47562; 00790; 88304; A9270; J0330; J0665; J0690; J1100; J1630; J1885; J2405; J2704; J2710; J3010; J7030